=== PATIENT | male | born 1990 | race African-American/Black ===

== ENCOUNTER 2025-03-15 15:55 | Emergency (ER) | payer SELFPAY ==
--- OUTSIDE RECORDS SUMMARY | 2014-07-06 06:00 | XMS_ITS | Continuity of Care Document ---
Author Organization [facility] Address [address] [place] [address] Phone Care Team Providers Care Special Police Officer Name Role Phone Dennis Luna MD Unavailable Unavailable Allergies, Adverse Reactions, Alerts Substance Reaction Status Criticality Penicillins Anaphylaxis Active No Information Medications Medication Instructions Dosage Effective Dates (start - stop) Status Comments No Drug Therapy Prescribed Procedures Procedure Date OFFICE/OUTPATIENT VISIT, [facility] Advance Directives Directive Yes / No Effective Date File Name No Information Encounters Encounter Description Practice Location Reason(s) For Visit Diagnoses Date Provider Providers Copied on Encounter OFFICE/OUTPATI ENT VISIT, [facility], [address] [place], [place], [id number], [place] tel:[phone] [facility] establish care (chief complaint) Knee injury Jeremy Collins. [address], [place], [id number], [place]. tel:[phone] Family History Family Member Type Diagnosis Age At Onset Brother Problem (finding) Alive and well Mother Problem (finding) hypertension Father Problem (finding) Alive and well Sister Problem (finding) Alive and well Mother Problem (finding) Alive and well Payers Payer name Insurance type Covered constitution party ID Authoriza tion(s) No Information Social History Type Description Quantity Date Captured Comments Alcohol Use Details No Caffeine Use Details No Tobacco Use Status Occasional tobacco smoker Smoking Status Light tobacco smoker Smoking Tobacco Use Details Cigar: No Details Available Cigar: 1 Cigars per day [id number] SexMale Vital Signs Date / Time: Height [...] when he does receive it. GAVIN DON. Functional Status Date Functional Assessmen t [...]
[2025-03-15 16:05] VITALS: BP 134/81; PULSE 77; TEMP 36.9; O2SAT 100
--- NOTE | 2025-03-15 16:16 | ED.BACK1 ---
HPI HPI - Back Pain/Injury General Chief Complaint: Back Pain/Injury Stated Complaint: BACK PAIN Time Seen by Provider: 03/15/25 16:08 Source: patient Mode of arrival: walk-in History of Present Illness HPI Narrative: 34 year old male presents to the ED for pain across his mid back. Onset was 2-3 days ago. Denies injury, weakness, urinary symptoms, SOB. Denies saddle anesthesia and change in bowel and/or bladder control. The pain is worse with movement. Related Data Previous Rx's ?Medication ?Instructions ?Recorded hydrocodone 5 mg-acetaminophen 325 1 tab PO Q8H PRN pain 3 days #9 03/15/25 mg tablet tabs prednisone 20 mg tablet 40 mg (2 x 20 mg) PO DAILY #10 tabs 03/15/25 tizanidine 4 mg capsule (Zanaflex) 4 mg PO Q8H PRN muscle spasticity 03/15/25 #12 caps Allergies Allergy/AdvReac Type Severity Reaction Status Date / Time Penicillins Allergy slows me Verified 03/15/25 16:05 down Opioid HPI Opioid Management Most Recent Opioid Data: Last Pain Scale 8 Today, 16:05 Review of Systems ROS Constitutional Denies: fever or chills Cardiovascular Denies: chest pain Respiratory Denies: shortness of breath Gastrointestinal Denies: abdominal pain Genitourinary Denies: painful urination, urinary frequency, urinary urgency or blood in urine Musculoskeletal Reports: back pain; Denies: neck pain Neurological Denies: numbness in extremities or weakness in extremities PFSH PFSH Social History Little interest or pleasure in doing things: not at all Feeling down, depressed, or hopeless: not at all Exam Constitutional Vital Signs, click to edit/add: Last Vital Signs Temp 98.5 F 03/15/25 16:05 Pulse 77 03/15/25 16:05 Resp 16 03/15/25 16:05 BP 134/81 03/15/25 16:05 Pulse Ox 100 03/15/25 16:05 O2 Del Method Room Air 03/15/25 16:05 Common normals: no apparent distress and oriented x3 General appearance: cooperative [facility] Common normals: moist oral mucous membranes Eye Common normals: conjunctivae normal and no scleral icterus Neck & C-Spine Common normals: supple Cervical spine: no cervical spine tenderness, no paracervical muscle tenderness and no paracervical muscle spasm Chest Chest: symmetrical chest wall rise Respiratory Common normals: normal respiratory effort Effort & inspection: able to speak in complete sentences and symmetric chest movement Cardio Common normals: regular rate and regular rhythm Back & Pelvis Thoracic spine/upper back: paraspinal muscle tenderness and paraspinal muscle spasm; no thoracic spinal tenderness Lumbar spine/lower back: no lumbar spinal tenderness and no paraspinal muscle tenderness Neuro Common normals: oriented x3, CN's II-XII intact bilaterally, moves all extremities and no focal motor deficits Sensorium/orientation: awake and alert Speech: speech normal Gait (neuro): normal gait Course Vital Signs Vital signs: Vital Signs Temperature 98.5 F 03/15/25 16:05 Pulse Rate 77 03/15/25 16:05 Respiratory Rate 16 03/15/25 16:05 Blood Pressure 134/81 03/15/25 16:05 Pulse Oximetry 100 03/15/25 16:05 Oxygen Delivery Method Room Air 03/15/25 16:05 Temperature 98.5 F 03/15/25 16:05 Pulse Rate 77 03/15/25 16:05 Respiratory Rate 16 03/15/25 16:05 Blood Pressure 134/81 03/15/25 16:05 Pulse Oximetry 100 03/15/25 16:05 Oxygen Delivery Method Room Air 03/15/25 16:05 MDM - Back Pain/Injury MDM Narrative Medical decision making narrative: Pt declined imaging today. He declined a urinalysis today. He was medicated with Naprosyn and Decadron here. OARRS was reviewed. Prescriptions were provided for prednisone, Zanaflex, and norco. Follow up with a pcp for a recheck, furthe evaluation and treatment. Return to the ED for worsening symptoms. Differential Diagnosis Differential diagnosis: Likely thoracic back pain and other (back strain, UTI, DDD) Medical Records Attestation: I reviewed the patient's medical records. Discharge Plan Discharge Chief Complaint: Back Pain/Injury Clinical Impression: Back pain Patient Disposition: Home, Self-Care Time of Disposition Decision: 16:19 Condition: Good Mode of Transportation: Private Vehicle Prescriptions / Home Meds: New tizanidine [Zanaflex] 4 mg capsule 4 mg PO Q8H PRN (Reason: muscle spasticity) Qty: 12 0RF prednisone 20 mg tablet 40 mg PO DAILY Qty: 10 0RF hydrocodone-acetaminophen 5-325 mg tablet 1 tab PO Q8H PRN (Reason: pain) 3 Days Qty: 9 0RF Print Language: Lithuanian Instructions: Back Pain (ED) Additional Instructions: Return to the ED for worsening symptoms. Discharge Date/Time: 03/15/25 17:06
[2025-03-15] MEDS: DEXAMETHASONE SOD PHOS 10 MG/ML VIAL PO (16:41)
[2025-03-15] MEDS: NAPROXEN 250 MG TABLET 500 MG PO (16:41)
--- OUTSIDE RECORDS SUMMARY | 2025-03-15 16:54 | XMS_ITS | Clinical Summary ---
Author Organization [facility] Address [address] [place] [address] Care Team Providers Care Budget Clerk Name Role Phone Unavailable Primary Care Provider Unavailabl e Encounters DateTypeDepartmentCare YgcqWlbspdfcvpj64/07/2025 11:30 AM EDTOffice Visit [facility] [address] [place] [address] Albino Castelan, DO Encounter for drug /07/2025Travelfrom Last 3 Months Social History Tobacco UseTypesPacks/DayYears UsedDateSmoking Tobacco: Never AssessedSex and Gender InformationValueDate RecordedSex Assigned at BirthNot on fileLegal Sex Male08/01/2022 6:36 PM EDTGender IdentityNot on fileSexual OrientationNot on file Last Filed Vital Signs Vital SignReadingTime TakenCommentsBlood Angwhpuh604/8011 4:23 PM EST Gnjfo377504/10/2024 4:23 PM UQPNkbralzzlql18.6 ??C (97.9 ??F)04/10/2024 4:23 PM ESTRespiratory Rate--Oxygen Hmmgwmcuis16%04/10/2024 4:23 PM ESTInhaled Oxygen Concentration--Weight--Height--Body Mass Index-- Plan of Treatment Not on file
== END 2025-03-15 17:06 | disposition home or self-care (01) ==
LOC: ER 16:52
PROVIDERS: Emergency Provider Emergency Medicine
DX: M54.89 Other dorsalgia (principal)
CPT/HCPCS: 99283; J1100

== ENCOUNTER 2025-03-16 23:11 | Emergency (ER) | payer SELFPAY ==
--- OUTSIDE RECORDS SUMMARY | 2014-07-06 06:00 | XMS_ITS | Continuity of Care Document ---
Author Organization [facility] Address [address] [place] [address] Phone Care Team Providers Care Manager Laundry Name Role Phone Dennis Luna MD Unavailable Unavailable Allergies, Adverse Reactions, Alerts Substance Reaction Status Criticality Penicillins Anaphylaxis Active No Information Medications Medication Instructions Dosage Effective Dates (start - stop) Status Comments No Drug Therapy Prescribed Procedures Procedure Date OFFICE/OUTPATIENT VISIT, [facility] Advance Directives Directive Yes / No Effective Date File Name No Information Encounters Encounter Description Practice Location Reason(s) For Visit Diagnoses Date Provider Providers Copied on Encounter OFFICE/OUTPATI ENT VISIT, [facility], [address], [place], [id number], [place] tel:[phone] [facility] establish care (chief complaint) Knee injury Jeremy Collins. [address], [place], [id number], [place]. tel:[phone] Family History Family Member Type Diagnosis Age At Onset Brother Problem (finding) Alive and well Mother Problem (finding) hypertension Father Problem (finding) Alive and well Sister Problem (finding) Alive and well Mother Problem (finding) Alive and well Payers Payer name Insurance type Covered republican ID Authoriza tion(s) No Information Social History Type Description Quantity Date Captured Comments Alcohol Use Details No Caffeine Use Details No Tobacco Use Status Occasional tobacco smoker Smoking Status Light tobacco smoker Smoking Tobacco Use Details Cigar: No Details Available Cigar: 1 Cigars per day [id number] SexMale Vital Signs Date / Time: Height Weight BMI Pulse Rate Blood Pressure Temperature Respiratory Rate Body Surface Area Head Circumference Head Circ. Percentile Wt./Ben. Percentile BMI percentile Pulse Ox Inhaled Ox 10:30 AM 73.00 in 117.027 kg (258.00 lbs) 34.0 4 kg/m eter (2) 76 /min 138/78 mm[Hg] 98.50 F 16 /min 98 % Chief Complaint And Reason For Visit From encounter dated '07/06/2014 10:00'. establish care (chief complaint). Description: Patient here today to establish care. He states in 2012 he dislocated his right knee, playing basketball. Patient states he flipped over a fence about afew weeks ago and feels as if he re injured the knee. Denies any other health issues. He does not want a MRI at this time until he has insurance through his place of employment. Will call back with insurance information when he does receive it. GAVIN DON. Reason For Referral Reason For Referral No Information History Of Present Illness Encounter Date Complaint History Of Prese nt Illness establish care Patient here tod ay to establish care. He states in 2012 he dislocated his right knee, playing basketball. Patient states he flipped over a fence about a few weeks ago and feels as if he re injured the knee. Denies any other health issues. He does not want a MRI at this time until he has insurance through his place of employment. Will call back with insurance information when he does receive it. GVAIN DON. Functional Status Date Functional Assessmen t No Information Medications Administered Medication Instructions Dosage Effective Dates (start - stop) Status Comments No Drug Therapy Prescribed Instructions Date Instruction Additional Infor mation No Information Assessments Type Assessment Date assessment Knee injury impression pt is here to establ chato but has no current medical issues except his knee injurypt needs a return to work slippt says the pain is much improved and he will have no problem completing job dutiesRTW slip providedMRI of right knee ordered as discussedpt is currently a temp at workonce his probationary period is over he believes he is eligible for medical insurancewe will order the MRI which he can obtain on sliding income scale basis or wait until he obtains insurance whichever he choosesPt U+A w/plan Mental Status Date Cognitive Assessment N/A Patient Care Teams Name Effective Dates (start - stop) Status Members No Information
[2025-03-16 23:16] VITALS: BP 140/90; PULSE 72; TEMP 36.8; O2SAT 99; BMI 29.5
--- OUTSIDE RECORDS SUMMARY | 2025-03-16 23:20 | XMS_ITS | Clinical Summary ---
Author Organization [facility] Address [address] [place] [address] Care Team Providers Care Heavy Machinery Assembler Name Role Phone Unavailable Primary Care Provider Unavailabl e Encounters DateTypeDepartmentCare QveoQvwvkmddmyl87/07/2025 11:30 AM EDTOffice Visit [facility] [address] [place] [address] Albino Castelan, DO Encounter for drug sxeuomlgn14/07/2025Travelfrom Last 3 Months Social History Tobacco UseTypesPacks/DayYears UsedDateSmoking Tobacco: Never AssessedSex and Gender InformationValueDate RecordedSex Assigned at BirthNot on fileLegal Sex Male08/01/2022 6:36 PM EDTGender IdentityNot on fileSexual OrientationNot on file Last Filed Vital Signs Vital SignReadingTime TakenCommentsBlood Caxlmzfe727/8011 4:23 PM EST Jzknz568804/10/2024 4:23 PM BRRXksrblghyqw17.6 ??C (97.9 ??F)04/10/2024 4:23 PM ESTRespiratory Rate--Oxygen Lwpabjcvhy51%04/10/2024 4:23 PM ESTInhaled Oxygen Concentration--Weight--Height--Body Mass Index-- Plan of Treatment Not on file
--- NOTE | 2025-03-16 23:26 | CT_ITS ---
The [address] [address] Patient Name: SUNITHA NIELSEN MRN: [id number] date: 1990 Sex: M Assigned Patient Location: ER Current Patient Location: Accession/Order Number: [id number] Exam Date: 03/16/2025 23:30 Report Date: 03/16/2025 23:55 At the request of: ARMAND KULKARNI DO Procedure: CT abdomen pelvis wo con CT ABDOMEN AND PELVIS WITHOUT INTRAVENOUS CONTRAST: CLINICAL HISTORY: R flank pain, r/o stone COMPARISON: None TECHNIQUE: Spiral images were obtained through the abdomen and pelvis without intravenous contrast. This CT exam was performed using one or more following dose reduction techniques: Automated exposure control, adjustment of the mA and/or kV according to patient size, or use of iterative reconstruction technique. FINDINGS: Lung Bases: [Lung bases are clear.] Organs:Gallbladder contracted. Liver, spleen, adrenals, pancreas and kidneys unremarkable. Negative hydronephrosis. Negative for nephrolithiasis. No ureterolithiasis. GI: Mild retained stool the colon. No bowel obstruction. Appendix unremarkable.[ Pelvis:[Bladder wall thickening likely related to under distention or cystitis, correlate with urinalysis findings.] Peritoneum/Retroperitoneum:No free air or free fluid. Focal calcific plaque right internal iliac artery noted.[ Abd wall/Bones:Mild spurring both sacral joints.[ CT/CT abdomen pelvis wo con IMPRESSION: Negative for nephrolithiasis or obstructive uropathy. Negative acute inflammatory process or bowel obstruction Impression dictated by: Hira Schuler M.D. 03/16/2025 11:55 PM Dictation Location: [place] [address] Electronically authenticated by: [id number] Y Date: 03/16/2025 23:55
--- NOTE | 2025-03-16 23:29 | ED_ITS ---
HPI HPI - General Adult General Chief complaint: Back Pain/Injury Stated complaint: KIDNEY STONES Time Seen by Provider: 03/16/25 23:15 Source: patient Mode of arrival: walk-in Limitations: no limitations History of Present Illness HPI narrative: Patient is a 34-year-old male presenting to the emergency department for evaluation of right flank pain. Patient was seen in the emergency department yesterday for the same complaint. He was diagnosed with a muscle spasm, did not want to get any imaging or laboratory studies drawn at that time. He states that he has been on muscle relaxers and pain medication, however symptoms persist. He denies any other associated symptoms such as nausea, vomiting, chest pain, shortness of breath, fevers, chills, dysuria, or hematuria. Denies history of kidney stones. He denies history of trauma to the area. He is otherwise healthy with no chronic medical conditions. He takes no daily medications. Related Data Previous Rx's ?Medication ?Instructions ?Recorded hydrocodone 5 mg-acetaminophen 325 1 tab PO Q8H PRN pa in 3 days #9 03/15/25 mg tablet tabs prednisone 20 mg tablet 40 mg (2 x 20 mg) PO DAILY # 10 tabs 03/15/25 tizanidine 4 mg capsule (Zanaflex) 4 mg PO Q8H PRN mus karen spasticity 03/15/25 #12 caps Allergies Allergy/AdvReac Type Severity Reaction Status Date / Time Penicillins Allergy slows me Verified 03/16/25 23:20 down Opioid HPI Opioid Management Most Recent Opioid Data: Last Pain Scale 7 03/16/25, 23:50 Last JUL Pain Assessment 03/16/25, 23:50 Review of Systems ROS Status of ROS 10 or more systems reviewed and unremark able except as noted in history and below PFSH PFSH Social History Little interest or pleasure in doing things: not at all Feeling down, depressed, or hopeless: not at all Exam Narrative Exam Narrative: CONSTITUTIONAL: Well-appearing, answering questions and following commands appropriately SKIN: Was warm and dry, no rashes on his back. EYES: Sclerae white. EARS, NOSE, THROAT: Moist oral mucosa. RESPIRATORY: Clear to auscultation bilaterally, no wheezes, crackles, or stridor, no use of accessory muscles CARDIOVASCULAR: Normal rate and regular rhythm. There is no S3, S4, murmur, rub. GASTROINTESTINAL: Abdomen is soft, nontender, nondistended. No CVA tenderness. No rebound tenderness or guarding. MUSCULOSKELETAL: There is mild tenderness to palpation about the paraspinal muscles of the right side of his mid back. NEUROLOGIC: Patient is awake and alert. Facies were symmetrical. Constitutional Vital Signs, click to edit/add: Last Vital Signs Temp 98.2 F 03/16/25 23:16 Pulse 72 03/16/25 23:16 Resp 18 03/16/25 23:16 BP 140/90 03/16/25 23:16 Pulse Ox 99 03/16/25 23:43 O2 Del Method Room Air 03/16/25 23:43 Course Vital Signs Vital signs: Vital Signs Temperature 98.2 F 03/16/25 23:16 Pulse Rate 72 03/16/25 23:16 Respiratory Rate 18 03/16/25 23:16 Blood Pressure 140/90 03/16/25 23:16 Pulse Oximetry 99 03/16/25 23:16 Oxygen Delivery Method Room Air 03/16/25 23:16 Temperature 98.2 F 03/16/25 23:16 Pulse Rate 72 03/16/25 23:16 Respiratory Rate 18 03/16/25 23:16 Blood Pressure 140/90 03/16/25 23:16 Pulse Oximetry 99 03/16/25 23:43 Oxygen Delivery Method Room Air 03/16/25 23:43 Medical Decision Making MDM Narrative Medical decision making narrative: Patient is a 34-year-old male presenting to the emergency department with a 4- day history of atraumatic right flank pain. His vital signs on arrival are within normal limits. He is afebrile and hemodynamically stable. Examination as noted above. Differential diagnosis includes muscle spasm, nephrolithiasis, UTI, or other electrolyte/metabolic derangement. IV was established and laboratory studies were obtained. CT abdomen/pelvis was ordered. Patient is given IV ketorolac for pain. CT abdomen/pelvis independently reviewed and interpreted by myself and radiology demonstrated no acute intra-abdominal pathologies, no kidney stones. Laboratory studies were unremarkable. No significant electrolyte or metabolic derangement. No evidence of acute kidney injury. No anemia, leukocytosis, or thrombocytopenia. No transaminitis or hyperbilirubinemia. Urinalysis was negative. On reevaluation, patient states he feels improved. I do believe the patient is stable for discharge. Patient's presentation is most likely consistent with musculoskeletal pain. They were instructed to follow up with his PCP. Return precautions were given including any new or worsening symptoms. Patient understands and agrees to the plan. FINAL IMPRESSION: #Acute musculoskeletal back pain DISPOSITION: Discharged home CONDITION: Good Lab Data Lab results reviewed: Yes I reviewed the patient's lab results Labs: Lab Results 03/16/25 03/16/25 Range/Units 23:35 23:49 WBC 10.0 (4.0-11.0) 10^3/uL RBC 4.32 L (4.70-6.10) 10^6/uL Hgb 13.0 L (14.0-18.0) g/dL Hct 39.0 L (42.0-54.0) % MCV 90.3 (80.0-94.0) fL MCH 30.1 (25.9-34.0) pg MCHC 33.3 (29.9-35.2) g/dL RDW 13.3 (11.0-15.0) % Plt Count 388 (150-450) 10^3/uL MPV 9.0 L (9.5-13.5) fL Neut % (Auto) 52.0 (43.0-75.0) % Lymph % (Auto) 38.6 (20.5-60.0) % [place] % (Auto) 8.2 (1.7-12.0) % Eos % (Auto) 0.7 L (0.9-7.0) % Baso % (Auto) 0.3 (0.2-2.0) % Neut # (Auto) 5.2 (1.4-6.5) 10^3/uL Lymph # (Auto) 3.9 H (1.2-3.8) 10^3/uL [place] # (Auto) 0.8 (0.3-0.8) 10^3/uL Eos # (Auto) 0.1 (0.0-0.7) 10^3/uL Baso # (Auto) 0.0 (0.0-0.1) 10^3/uL Abs Immat Gran (auto) 0.02 (0.00-0.03) 10^3/uL Imm/Tot Granulo (auto) 0.2 (0.0-0.5) % Sodium 138 (136-145) mmol/L Potassium 3.6 (3.5-5.1) mmol/L Chloride 104 (98-107) mmol/L Carbon Dioxide 28.4 (21.0-32.0) mmol/L Anion Gap 9.2 BUN 18.0 (7.0-18.0) mg/dL Creatinine 1.30 (0.70-1.30) mg/dL Est GFR ( Amer) >60 (>=60 mL/min/1.73m^2) Est GFR (Non-Af Amer) >60 (>=60 mL/min/1.73m^2) BUN/Creatinine Ratio 13.8 Glucose 90 (74-106) mg/dL Calcium 9.2 (8.5-10.1) mg/dL Total Bilirubin 0.5 (0.2-1.0) mg/dL AST 18 (15-37) U/L ALT 25 (16-63) U/L Alkaline Phosphatase 49 (46-116) U/L Total Protein 7.6 (6.4-8.2) g/dL Albumin 4.0 (3.4-5.0) g/dL Globulin 3.6 g/dL Albumin/Globulin Ratio 1.1 Urine Color Lt. yellow (YELLOW) Urine Clarity Clear (CLEAR) Urine pH 6.0 (5.0-9.0) Ur Specific [place] 1.015 (1.005-1.025) Urine Protein Negative (NEG/TRACE) mg/dL Urine Glucose (UA) Negative (NEGATIVE) mg/dL Urine Ketones Trace A (NEGATIVE) mg/dL Urine Occult Blood Trace-i (NEGATIVE) Urine Nitrite Negative (NEGATIVE) Urine Bilirubin Negative (NEGATIVE) Urine Urobilinogen 2.0 A (0.2-1.0) EU/dL Ur Leukocyte Esterase Negative (NEGATIVE) Urine RBC None seen (0-2) #/HPF Urine WBC 0-2 A (NONE SEEN) #/HPF Ur Squamous Epith Cells None seen (NONE/RARE) #/LPF Urine Crystals None seen (None Seen) #/HPF Urine Bacteria None seen (NONE SEEN) #/HPF Urine Casts None seen (NONE SEEN) #/LPF Urine Mucus None seen (NONE SEEN) Ur Culture Indicated? No Imaging Data CT scan - abdomen: Attestation: I personally reviewed and interpreted this imaging study as follows: Radiologist's impression: ITS Impressions Abdomen/Pelvis CT 03/16/25 23:26 IMPRESSION: Negative for nephrolithiasis or obstructive uropathy. Negative acute inflammatory process or bowel obstruction Impression dictated by: Hira Schuler M.D. 03/16/2025 11:55 PM Dictation Location: [place] [address] Electronically authenticated by: [id number] Y Date: 03/16/2025 23:55 Discharge Plan Discharge Chief Complaint: Back Pain/Injury Clinical Impression: Back pain Patient Disposition: Home, Self-Care Time of Disposition Decision: 00:17 Condition: Good Mode of Transportation: Private Vehicle Prescriptions / Home Meds: No Action tizanidine [Zanaflex] 4 mg capsule 4 mg PO Q8H PRN (Reason: muscle spasticity) Qty: 12 0RF prednisone 20 mg tablet 40 mg PO DAILY Qty: 10 0RF hydrocodone-acetaminophen 5-325 mg tablet 1 tab PO Q8H PRN (Reason: pain) 3 Days Qty: 9 0RF Print Language: Arabic Instructions: Back Pain (ED) Referrals: Physician,Non-Staff, MD [Primary Care Provider] - 1 week Discharge Date/Time: 03/17/25 00:24
[2025-03-16 23:41] LABS: Glucose Urine UA NEGATIVE (NEGATIVE)
[2025-03-16 23:43] VITALS: O2SAT 99
[2025-03-16 23:47] LABS: Cast Seen? NONE SEEN #/LPF (NONE SEEN); Crystals Seen? None Seen #/HPF (None Seen); Urine Culture Indicated NO
[2025-03-16] MEDS: KETOROLAC TROMETHAMINE 30 MG/ML VIAL IVP (23:50)
[2025-03-16 23:56] LABS: Hematocrit 39.0 % (42.0-54.0); Hemoglobin 13.0 g/dL (14.0-18.0); Immature Granulocytes Abs Auto 0.02 10^3/uL (0.00-0.03); Immature Granulocytes Pct Auto 0.2 % (0.0-0.5); Lymphocytes Absolute Auto 3.9 10^3/uL (1.2-3.8); Mean Corpuscular HGB Conc 33.3 g/dL (29.9-35.2); Mean Corpuscular Hemoglobin 30.1 pg (25.9-34.0); Mean Corpuscular Volume 90.3 fL (80.0-94.0); Platelet Count 388 10^3/uL (150-450); Red Blood Count 4.32 10^6/uL (4.70-6.10); White Blood Count 10.0 10^3/uL (4.0-11.0)
[2025-03-17 00:13] LABS: Alanine Aminotransferase 25 U/L (16-63); Albumin Globulin Ratio 1.1; Albumin Level 4.0 g/dL (3.4-5.0); Alkaline Phosphatase 49 U/L (46-116); Anion Gap 9.2; Aspartate Amino Transferase 18 U/L (15-37); Blood Urea Nitrogen 18.0 mg/dL (7.0-18.0); Calcium 9.2 mg/dL (8.5-10.1); Carbon Dioxide 28.4 mmol/L (21.0-32.0); Chloride 104 mmol/L (98-107); Estimated GFR (African America >60 (>=60 mL/min/1.73m^2); Estimated GFR (Non-African Ame >60 (>=60 mL/min/1.73m^2); Globulin 3.6 g/dL; Glucose 90 mg/dL (74-106); Potassium 3.6 mmol/L (3.5-5.1); Sodium 138 mmol/L (136-145); Total Protein 7.6 g/dL (6.4-8.2)
== END 2025-03-17 00:24 | disposition home or self-care (01) ==
PROVIDERS: Emergency Provider Student in an Organized Health Care Education/Training Program
DX: M54.9 Dorsalgia, unspecified (principal)
CPT/HCPCS: 36415; 74176; 80053; 81001; 85025; 96374; 99285; J1885